=== PATIENT | female | born 1965 | race Caucasian/White ===

== ENCOUNTER 2024-02-14 13:25 | Outpatient (CLI) | payer OTHER, SELFPAY ==
--- NOTE | ~2024-02-14 | MR_ITS ---
EXAMINATION: MR cervical spine wo con DATE: 02/14/2024 14:40 INDICATION: Cervical spine disc degeneration. TECHNIQUE: Magnetic resonance imaging (MRI) of the cervical spine was performed without intravenous c ontrast. COMPARISON: None FINDINGS: There is 2 mm anterolisthesis of C4 on C5. Vertebral body heights are normal. There is mild ly decreased disc height at C4-C5 and moderately decreased disc height at C5-C6. The spinal cord sign al intensity is normal. The following disc levels are specifically discussed: C2-C3: The disc does not extend beyond the endplate margin. There is no uncovertebral joint osteoarth ritis. There is mild bilateral facet joint osteoarthritis. There is no neural foraminal stenosis. The re is no central canal stenosis. C3-C4: There is a central protrusion. There is mild right uncovertebral joint osteoarthritis. There i s mild bilateral facet joint osteoarthritis. There is mild right neural foraminal stenosis. There is no central canal stenosis. C4-C5: There is a right central extrusion. There is mild bilateral uncovertebral joint osteoarthritis . There is mild right and severe left facet joint osteoarthritis. There is moderate left neural maxwell inal stenosis. There is moderate central canal stenosis with ventral and dorsal indentation of the sp inal cord. C5-C6: The disc is bulging. There is severe bilateral uncovertebral joint osteoarthritis. There is mo derate right and severe left facet joint osteoarthritis. There is mild bilateral neural foraminal keila nosis. There is mild central canal stenosis with ventral indentation of the spinal cord. C6-C7: There is a central extrusion. There is mild bilateral uncovertebral joint osteoarthritis. Ther e is no facet joint osteoarthritis. There is no neural foraminal stenosis. There is mild central johnny l stenosis. C7-T1: The disc does not extend beyond the endplate margin. There is no uncovertebral joint osteoarth ritis. There is moderate right and mild left facet joint osteoarthritis. There is no neural foraminal stenosis. There is no central canal stenosis. IMPRESSION: 1. Moderate cervical spondylosis. Reviewed, dictated and finalized at location A.
== END 2024-02-14 13:26 | disposition home or self-care (01) ==
PROVIDERS: Visit Provider Internal Medicine
DX: M50.322 Other cervical disc degeneration at C5-C6 level (principal); M48.52XA Collapsed vertebra, not elsewhere classified, cervical region, initial encounter for fracture; M25.78 Osteophyte, vertebrae; M43.02 Spondylolysis, cervical region
CPT/HCPCS: 72141